=== PATIENT | male | born 1965 | race Caucasian/White ===

== ENCOUNTER 2017-12-03 18:53 | Emergency (ER) | payer BC ==
--- NOTE | 2017-12-03 20:09 | ER Document Report ---
ED Extremity Problem, Lower - General Chief Complaint: Knee Pain Stated Complaint: KNEE PAIN Time Seen by Provider: 12/03/17 19:37 Mode of Arrival: Ambulatory Information source: Patient - HPI Patient complains to provider of: Injury, Pain Location: Knee Notes: Patient is here with complaints of left knee pain. He states that he dropped a board while at work that hit his knee. He did not have any significant pain. He got in his car to drive home from work and when he got home his knee was stiff and had more pain. He denies any fevers. No nausea, vomiting, diarrhea. No numbness, tingling, weakness. No redness. No chest pain or shortness of breath. No abdominal pain. Pain is worse with any sort of movement specifically with flexion, seems to be better with rest. He took some ibuprofen just prior to getting here. I offered him some Tylenol, he declined at this time. No other complaints at this time. - Related Data Allergies/Adverse Reactions: No Known Allergies Allergy (Unverified 08/17/12 07:00) Past Medical History - Social History Smoking Status: Unknown if Ever Smoked Family History: Reviewed & Not Pertinent Patient has suicidal ideation: No Patient has homicidal ideation: No - Past Medical History Cardiac Medical History: Reports: Hx Heart Attack - 2010, Hx Hypertension Renal/ Medical History: Denies: Hx Peritoneal Dialysis Past Surgical History: Reports: Hx Orthopedic Surgery - thumb amputation - Immunizations Hx Diphtheria, Pertussis, Tetanus Vaccination: - unknown Review of Systems - Review of Systems -: Yes All other systems reviewed and negative Physical Exam - Vital signs Vitals: Temp Pulse Resp BP Pulse Ox 97.4 F 66 16 151/81 H 100 12/03/17 19:00 12/03/17 19:00 12/03/17 19:00 12/03/17 19:00 12/03/17 19:00 - Notes Notes: GENERAL: alert, cooperative, nontoxic, no distress. HEAD: normocephalic, atraumatic EYES: conjunctiva pink without discharge, no external redness or swelling. EARS: no external swelling, no external redness NOSE: atraumatic, no external swelling MOUTH/THROAT: mucous membranes moist and pink NECK: soft, supple, full range of motion, no meningismus. CHEST: no distress, lungs clear and equal throughout. No wheezing, rales, rhonchi. CARDIAC: regular rate and rhythm, no murmur, normal capillary refill, normal pulses. BACK: full range of motion, no CVA tenderness. EXTREMITIES: Tenderness to palpation of the left anterior knee. No obvious swelling. No redness. Not hot to the touch. No obvious ligament instability. Anterior posterior drawer unremarkable. Normal pulse and sensation distally. Ankle and hip joints are unremarkable. NEURO: alert and oriented 3, no focal deficits, full range of motion of all extremities. PYSCH: appropriate mood, affect. Patient is cooperative. SKIN: pink, warm, dry, no rash. Course - Re-evaluation Re-evalutation: 12/03/17 20:45 Patient is nontoxic appearing with stable vitals. The patient is here with complaints of left knee pain. He states that he dropped a board on his knee at work did not have much pain until he got home and went to get out of his truck and now his knee is hurting. There is no redness or swelling or signs of infection. He has normal neurovascular exam. Compartments are soft. X-ray shows no acute fracture. The patient had an Magdaleno wrap applied to the knee for comfort. He will be discharged home with a prescription for Ultram instructions to rest, ice, elevate his knee. Follow-up with his primary care doctor or orthopedics if not better in 1 week, sooner for increasing pain, fever , redness, numbness, tingling, weakness, any further concerns. The patient's emergency department workup and current diagnosis were explained to the patient and or family. Follow-up instructions were provided. Medications if prescribed were discussed. Instructions for when to return to the emergency department including specific worrisome symptoms were discussed with the patient and/or family. Patient's blood pressure is elevated on today's visit, he is in pain and has a standing history of hypertension. No hypertensive symptoms at this time. - Vital Signs Vital signs: Temp Pulse Resp BP Pulse Ox 97.4 F 66 16 151/81 H 100 12/03/17 19:00 12/03/17 19:00 12/03/17 19:00 12/03/17 19:00 12/03/17 19:00 - Diagnostic Test Radiology reviewed: Image reviewed, Reports reviewed - The x-ray negative Procedures - Immobilization Left knee Pre-Proc Neuro Vasc Exam: Normal Immobilizer type: Magdaleno wrap Performed by: PCT Post-Proc Neuro Vasc Exam: Normal Alignment checked and good: Yes Discharge - Discharge Clinical Impression: Contusion of left knee Qualifiers: Encounter type: initial encounter Qualified Code(s): S80.02XA - Contusion of left knee, initial encounter Condition: Stable Disposition: HOME, SELF-CARE Instructions: Use of Crutches ([facility]), Ice & Elevation ([facility]), Sprained Knee ([facility]) Additional Instructions: Take medications as prescribed. Wear Magdaleno wrap as needed for comfort. Use her crutches as needed for comfort. Rest, ice, elevate your knee. Follow-up if not better in 1 week, sooner for increasing pain, fever, redness, numbness, tingling, weakness, any further concerns. Your blood pressure was elevated during today's visit. Have this rechecked with your doctor. The medication you were prescribed today may cause drowsiness. Do not drive or operate heavy machinery while taking this medication. Prescriptions: Tramadol HCl [Ultram 50 mg Tablet] 50 mg PO Q6HP PRN #12 tablet PRN Reason: Forms: Elevated Blood Pressure, Smoking Cessation Education Referrals: [facility] [Provider Group] - Follow up as needed JUAN GERARD MD [ACTIVE STAFF] - Follow up as needed
--- NOTE | 2017-12-03 20:39 | RADIOLOGY REPORT (SQ) ---
EXAM DESCRIPTION: KNEE LEFT 4 VIEW COMPLETED DATE/TIME: 12/03/2017 8:14 pm REASON FOR STUDY: pain, injury COMPARISON: None. NUMBER OF VIEWS: Four views. TECHNIQUE: AP, lateral, and both oblique radiographic images acquired of the left knee. LIMITATIONS: None. FINDINGS: MINERALIZATION: Normal. BONES: No acute fracture or dislocation. No worrisome bone lesions. JOINT: No effusion. SOFT TISSUES: No soft tissue swelling. No radio-opaque foreign body. OTHER: No other significant finding. IMPRESSION: NEGATIVE STUDY OF THE LEFT KNEE. NO RADIOGRAPHIC EVIDENCE OF ACUTE INJURY. TECHNICAL DOCUMENTATION: JOB ID: [id number] [employer]- All Rights Reserved Reading location - IP/workstation name: [email or web address]
[2017-12-03] MEDS ORDERED: TRAMADOL HCL 50 MG TABLET PO ONE (20:44)
[2017-12-03 21:50] VITALS: BP 161/100
== END 2017-12-03 21:15 | disposition home or self-care (01) ==
LOC: ER 18:53
DX: S80.02XA Contusion of left knee, initial encounter (principal); M25.562 Pain in left knee; W20.8XXA Other cause of strike by thrown, projected or falling object, initial encounter; Y99.0 Civilian activity done for income or pay; I10 Essential (primary) hypertension; I25.2 Old myocardial infarction
CPT/HCPCS: 99283